=== PATIENT | male | born 1970 ===

== ENCOUNTER 2017-09-02 06:37 | Emergency (ER) | payer SELFPAY ==
--- NOTE | 2017-09-02 07:57 | ED INFLUENZA/URI COMPLAINT ---
History of Present Illness General Chief Complaint: General Adult Stated Complaint: "FLU LIKE SYMPTOMS,, VOMITING" Source: patient, family Exam Limitations: no limitations Vital Signs & Intake/Output Vital Signs & Intake/Output Vital Signs Date Time Temp Pulse Resp B/P B/P Pulse O2 O2 Flow FiO2 Mean Ox Delivery Rate 09/02 0648 100.0 98 22 101/74 100 Allergies Coded Allergies: No Known Allergies (09/02/17) Triage Note: PER PT FLU LIKE SYMPTOMS X 2 DAYS, VOMITING FEVERS TO 102. SAW PMD GIVEN LEVOFLOXICIN AND COUGH MED TYLENOL Q 4 HRS LAST DOSE 30 MINUTES STAFF NURSE MIDWIFE Triage Nurses Notes Reviewed? yes HPI: Patient presents for evaluation of flulike symptoms began abruptly about 2 days ago. Patient did have some vomiting earlier this morning. He has had a headache muscle aches and a cough. He was evaluated by his primary care physician yesterday and was prescribed Levaquin and a cough medication. He denies any known ill contacts or recent travel. Past History Travel History Traveled to [place] past 21 day No Medical History Any Pertinent Medical History? see below for history Neurological: NONE EENT: NONE Cardiovascular: NONE Respiratory: NONE Gastrointestinal: NONE Hepatic: NONE Renal: NONE Musculoskeletal: NONE Psychiatric: NONE Endocrine: NONE Surgical History Surgical History: non-contributory Psychosocial History What is your primary language Malay Tobacco Use: Never used Family History Hx Contributory? No Review of Systems Review of Systems Constitutional: Reports: see HPI. EENTM: Reports: no symptoms. Respiratory: Reports: cough. Cardiovascular: Reports: no symptoms. GI: Reports: no symptoms. Genitourinary: Reports: no symptoms. Musculoskeletal: Reports: no symptoms. Skin: Reports: no symptoms. Neurological/Psychological: Reports: no symptoms. Hematologic/Endocrine: Reports: no symptoms. Immunologic/Allergic: Reports: no symptoms. All Other Systems: Reviewed and Negative Physical Exam Physical Exam Ears, Nose, Throat: SEE BELOW Comments: Gen.: Well-nourished, well-developed, no acute respiratory distress. Head: Normocephalic, atraumatic. Eyes: Normal inspection bilaterally Ears: Normal inspection bilaterally Nose: Normal inspection Throat/mouth : Moist mucosa, mild erythema without soft tissue swelling or exudates Neck: Supple, full range of motion, no goiter Heart: Regular rate and rhythm, no murmurs rubs or gallops Lungs: Clear to auscultation bilaterally with normal air entry Chest: Nontender Back: Normal range of motion Abdomen: Soft, nontender, nondistended, normal bowel sounds Extremities: Normal range of motion grossly, equal radial pulses, no cyanosis clubbing or edema Neurologic: Cranial nerves grossly intact, speech is clear Skin: warm and dry Psychiatric: Calm, cooperative, no apparent delusions or hallucinations Lymphatic: No cervical lymphadenopathy Core Measures Sepsis Present: No Sepsis Focused Exam Completed? No Progress Differential Diagnosis: VIRAL SYNDROME/INFLUENZA, PHARYNGITIS, SINUSITIS, PNEUMONIA Plan of Care: Orders Procedure Date/time Status THROAT CULTURE W/QUICK STREP 09/02 0751 Active URINALYSIS 09/02 0655 Complete Current Medications Sig/Katya Start time Last Medication Dose Stop Time Status Admin Ketorolac 60 MG ONCE ONE 09/03 799 UNVr Tromethamine 09/02 800 (Toradol) Ondansetron HCl 4 MG ONCE ONE 09/02 08 UNVr (Zofran) 09/02 08 Laboratory Tests 09/02/17 0700: Urinalysis LIGHT H, Urine Color YEL, Urine Clarity HAZY H, Urine pH 6.0, Ur Specific [place] >= 1.030, Urine Protein 30 H, Urine Ketones NEG, Urine Nitrite NEG, Urine Bilirubin NEG, Urine Urobilinogen 0.2, Ur Leukocyte Esterase NEG, Ur Microscopic SEDIMENT EXAMINED, Urine RBC 1-3, Urine WBC RARE, Ur Epithelial Cells RARE, Urine Bacteria FEW H, Hyaline Casts RARE H, Granular Casts RARE H , Urine Mucus MANY H, Urine Hemoglobin NEG, Urine Glucose NEG Initial ED EKG: none Comments: Patient's clinical presentation is consistent with a viral syndrome. He is already taking an antibiotic that should cover the bacterial illness. I feel at this point the patient simply requires symptomatic treatment. Departure Departure Disposition: HOME OR SELF CARE Condition: Stable Clinical Impression Primary Impression: Viral URI Referrals: Tariq MORTON,Danielito Villa (PCP/Family) Additional Instructions: Ibuprofen 600 mg every 6 hours as needed for fever and headache muscle aches or chills. Zofran as needed for nausea or vomiting. [id number] cough/cold medication if needed. Clear liquid diet and advance as tolerated. If consuming only liquids please drink Gatorade Powerade or Pedialyte. Follow-up with your primary care physician in 5 days if not improving. Return if any concerns or sudden worsening. Thank you for choosing the [facility] for your care. It was a pleasure to serve you today. Barrie Wright M.D. [facility] Departure Forms: Customer Survey General Discharge Information
[2017-09-02] MEDS ORDERED: ZOFRAN ODT4 M1 SL (08:13)
[2017-09-02 08:26] VITALS: BP 111/75
== END 2017-09-02 08:27 ==
LOC: ERH 06:37
DX: J06.9 Acute upper respiratory infection, unspecified (principal)
CPT/HCPCS: 81001; 96372; J1885; J3101